=== PATIENT | male | born 1945 | race Caucasian/White ===

== ENCOUNTER 2022-09-19 09:53 | Emergency (ER) | payer OTHER, SELFPAY ==
[2022-09-19] VITALS (17 sets, daily range): BP systolic 126–145; BP diastolic 68–78; PULSE 54–104; RESP 9–25; TEMP 36.7; O2SAT 93–98
--- NOTE | 2022-09-19 09:30 | RT.EKG_ITS ---
APPROVED REPORT Exam: Resting ECG Reason for Exam: DIZZY, WEAK Patient Location: E HR:65 bpm ECG Measurements Heart Rate 65 AXIS MN 138 P 49 QRSd 107 QRS 23 QT 435 T 56 QTc 453 Conclusion Sinus rhythm...normal P axis, V-rate 60- 99 Normal sinus rhythm at a rate of 65 with interventricular conduction delay and a QRS of 107 ms. Norm al axis. QTc within normal limits. MN within normal limits. No ST segment abnormalities. No acute injury pattern. No prior for comparison.
--- NOTE | 2022-09-19 10:05 | ED.GENADUL_ITS ---
Discharge Plan Disposition Patient Disposition: Home Discharge Details Clinical Impression: Dizziness Primary Care Provider: None,None ED Provider: August Britton Discharge Instructions Additional Instructions: Please read all of the information that accompanies these instructions. You were seen in the emergency department for your dizziness. Please schedule an appointment with your primary care provider later this week. Please return to the emergency department if fall again develop nausea or vomiting or develop any chest pain. Please return to the emergency department if you take any falls at home. Medical Decision Making This is an overall well-appearing normothermic and not tachycardic 76-year-old male with dizziness concerning for intracranial hemorrhage given head strike yesterday and age. He has no acute neurological deficits and so my suspicion is low for CVA and I do not feel that he is a tPA candidate given his lack of neurological deficits. Furthermore given my low suspicion for CVA and specifically left suspicion for posterior circulation stroke so I do not feel that the patient requires an MRI. He is not altered to suggest encephalitis though he may have early dementia. No tonic-clonic activity so I do not feel that the patient requires an EEG. No fevers no nuchal rigidity so I do not feel that the patient requires a lumbar puncture. He has not been nauseous nor vomiting so my suspicion for acute electrolyte abnormalities is low. He cannot recall what medications he takes and he has no medications listed in our EMR. Chart review at [facility] [place] indicates the patient takes terazosin, simvastatin, omeprazole, magnesium, finasteride, and amlodipine.He has remote history of cataract surgery.No reported generator use to suggest carbon monoxide toxicity. No headache to suggest giant cell arteritis. ECG with no significant dysrhythmias. Will obtain a troponin to assess for myocardial injury. Given his intermittent sudden onset dizziness my suspicion is higher for a peripheral cause rather than a central cause. We will ensure that he is not anemic. He is not an alcohol drinker to suggest acute ethanol intoxication. We will assess a TSH. No pain out of proportion to suggest necrotizing soft tissue infection.We will ensure patient is able to ambulate if he is to be discharged. Per Nexus criteria, cervical CT not obtained. The patient had no c-spine midline tenderness, no evidence of intoxication, was AAOx3, had no focal neurological deficits, and no painful distracting injuries. 10:48 AM CBC with no anemia thrombocytopenia nor leukocytosis. Negative troponin. Magnesium within normal limits. Normal reassuring TSH. Comprehensive metabolic panel with normal creatinine. No acute LFT abnormalities. No acute electrolyte abnormalities. Mild hyperglycemia but no gap to suggest DKA. Normal bicarbonate. Mildly elevated BUN. No prior for comparison. 11:15 AM On my preliminary read there is no signs of any acute intercranial hemorrhage. Will attempt symptomatic treatment for peripheral vertigo with meclizine. Patient reports having outpatient follow-up with the [facility] in [place]. I will have health superintendent ammunition storage Ana Maria have patient seen later this week for follow- up. 11:[address] scan reassuring. Advised outpatient coordinator Ana Maria to see if we have case management available to meet with the patient given that he fell at home yesterday. Patient tolerated an ambulatory trial in the ED. He was also able to tolerate p.o. 12:10 PM I spoke with Damaris from case management who will come to evaluate the patient. Patient's sister is at bedside. 12:40 PM Directly from case management met with the patient. Patient reportedly has a supportive neighbor. Patient ambulates at baseline without assistance. Damaris will touch base with case management from the [facility] to help arrange for the patient to have a lifeline through the [facility]. She will also help to arrange home health pending [facility] approval. I will have physical therapy come to evaluate the patient in the ED. 1:56 PM Unfortunately physical therapy was not available today. Patient was able to ambulate in the ED. I advised ED return if he had recurrent dizziness or recu rrent falls. Otherwise we will proceed with empiric trial of expectant outpatient management. Chronic conditions affecting the care of the patient: N/A History obtained from an outside historian: Paramedics External record review: Chart review [facility] [place] Diagnostic interpretations performed by me: Per my independent interpretation EKG shows: Normal sinus rhythm at a rate of 65 with interventricular conduction delay and a QRS of 107 ms. Normal axis. QTc within normal limits. NH within normal limits. No ST segment abnormalities. No acute injury pattern. No prior for comparison. Medications: Meclizine Social determinants of health affecting disposition: Lives alone Management discussed with: Care management Treatment/interventions considered: Hospitalization but deferred Response to therapies provided: No recurrent dizziness in the ED HPI General Date/Time Provider Initiated Documentation: 09/19/22 10:05 . HPI Narrative: This is a 76-year-old male with history of hypertension arriving via EMS in the setting of dizziness and lightheadedness when standing. Patient reportedly fell yesterday when standing. He reportedly struck his head. He reports no blood thinners. He denies any pain. He says that his dizziness comes and goes. He feels as if his dizziness is causing him to have room spinning. He has never had any prior episodes of similar symptoms. He can control the spinning sensation by lying down. He denies routine tobacco, ethanol, and illicits. He has had no weakness nor any difficulty speaking. He denies fevers chills nausea vomiting chest pain shortness of breath dysuria frequency and abdominal pain. He lives alone. Related Data Allergies Allergy/AdvReac Type Severity Reaction Status Date / Time No Known Allergies Allergy Unverified 09/19/22 10:01 General Stated Complaint: Dizzy/Sync RUTH ANN: 3 PFSH All Active Problems (Updated 09/19/22 @ 11:00 by August Britton MD) Dizziness (Acute) Social History Smoking/Tobacco Use Status: Never Smoking risk assessment performed?: Yes Alcohol Intake: never Substance use type: does not use Housing: house Exam Narrative Exam Narrative: General: Well-appearing in no acute distress speaking in complete sentences. Head: Normocephalic, atraumatic. Eye: Pupils equal, round reactive to light. Extraocular eye movements intact. No conjunctival injection. No scleral icterus. Ear, nose, mouth, throat: Grossly normal inspection. Normal voice, handling secretions normally. No hemotympanum bilaterally. No septal hematoma. Neck: Trachea midline. No midline cervical spinal tenderness. Cardiovascular: Well-perfused distal extremities. Regular rate and rhythm. Respiratory: Nonlabored respiration. Clear lungs bilaterally. Gastrointestinal: Nondistended abdomen.Soft nontender abdomen. Musculoskeletal: No edema. Moving all 4 extremities spontaneously. Skin: Normal for age and race, grossly normal temperature and turgor. No acute rash. Neurologic: Alert and appropriate, no apparent acute deficits. GCS 15. Cranial nerves II through XII intact grossly. No dysmetria. No dysdiadochokinesia. 5 out of 5 bilateral upper and lower extremity strength. Psychiatric: Mood and manner are appropriate. Grooming and personal hygiene are appropriate. Course Vital Signs Vital signs: Vital Signs Temperature 36.7 C 07/22/23 09:52 Pulse 89 09/19/22 09:52 Respiratory Rate 20 09/19/22 09:52 Blood Pressure 142/73 H 09/19/22 09:52 Pulse Oximetry 98 09/19/22 09:52 Temperature 36.7 C 09/19/22 09:52 Temperature Source Tympanic 09/19/22 09:52 Pulse 89 09/19/22 09:52 Respiratory Rate 20 09/19/22 09:52 Respiratory Effort Normal, Non-Labored 09/19/22 09:59 Blood Pressure 142/73 H 09/19/22 09:52 Blood Pressure Position Supine 09/19/22 09:52 Pulse Oximetry 98 09/19/22 09:52 Oxygen Delivery Method Room Air 09/19/22 09:52 Oxygen Flow Rate 0 09/19/22 09:52 Pain Level 0 09/19/22 09:52
--- NOTE | 2022-09-19 10:15 | DI.CT_ITS ---
Exam(s) CT HEAD WO EXAM: CT HEAD WO CLINICAL HISTORY: History of fall. TECHNIQUE: Imaging Protocol: Axial computed tomography images with coronal and sagittal reformatted images were created and reviewed COMPARISON: No exams were available for comparison FINDINGS: Ventricles and Extra axial spaces: Normal in size and morphology for the patient's age. Hemorrhage: None. Cerebral parenchyma: There is no evidence of an acute territorial infarct. There are areas of decrea sed attenuation in the white matter consistent with small vessel ischemic disease. Midline shift: None. Brainstem/Cerebellum: Normal. Calvarium: Normal. Visualized Paranasal sinuses/Mastoids: There is complete opacification of the right maxillary sinus. The remaining visualized paranasal sinuses are clear. Soft Tissues: There is mild soft tissue swelling over the right parietal scalp. IMPRESSION: No acute intracranial process. RADIATION DOSE DELIVERED: 738.15mGy.cm Total DLP DATA REPOSITORY: All CT scans at this facility are submitted to the National Radiology Data Registry (NRDR) Dose Index Registry (DIR) with the [employer] (ACR). RADIATION OPTIMIZATION: All CT scans at this facility use at least one of these dose optimization te chniques: automated exposure control; mA and/or kV adjustment per patient size (includes targeted exa ms where dose is matched to clinical indication); or iterative reconstruction.
[2022-09-19 10:26] LABS: Abs Immature Grans 0.03 10^3/uL (0.0-0.06); Absolute Basophil Count 0.05 10^3/uL (0.0-0.2); Absolute Eosinophil Count 0.09 10^3/uL (0.0-0.7); Absolute Lymphocyte Count 0.82 10^3/uL (1.2-3.4); Absolute Monocyte Count 0.42 10^3/uL (0.1-0.8); Absolute Neutrophil Count 4.82 10^3/uL (1.2-6.7); Basophils % 0.8; Eosinophils % 1.4; HCT 41.2 % (40.0-50.0); Immature Grans % 0.5; Lymphocytes % 13.2; MCH 30.9 pg (27.0-33.0); MCV 91 fL (80-95); Monocytes % 6.7; Neutrophils % 77.4; Platelet Count 204 10^3/uL (130-400); RBC 4.53 10^6/uL (4.36-5.78); RDW 12.5 % (11.8-14.1); RDW-SD 41.5 fL; WBC 6.23 10^3/uL (4.4-10.8)
[2022-09-19 10:51] LABS: ALT 22 U/L (16-63); AST 15 U/L (15-37); Alkaline Phosphatase 94 U/L (46-116); Anion Gap 5.4 mmol/L (3-11); BUN 19 mg/dL (7-18); Bilirubin, Total 0.4 mg/dL (0.2-1.0); CO2 28.6 mmol/L (21.0-32.0); CREATININE 1.3 mg/dL (0.70-1.30); Calcium 9.2 mg/dL (8.5-10.1); Chloride 107 mmol/L (98-107); Estimated GFR 56.58 (mL/min/1.73m2); Glucose 107 mg/dL (74-106); Magnesium 1.9 mg/dL (1.8-2.4); Potassium 4.7 mmol/L (3.5-5.1); Sodium 141 mmol/L (136-145); TSH 1.58 uIU/mL (0.36-3.74); Total Protein 6.8 g/dL (6.4-8.2); Troponin I < 50 ng/L (<or=60)
--- NOTE | 2022-09-19 11:42 | DI.VRAD_ITS ---
PROCEDURE INFORMATION: Exam: CT Head Without Contrast Exam date and time: 09/19/2022 11:15 AM Age: 76 years old Clinical indication: Injury or trauma; Fall; Blunt trauma (contusions or hematomas); With loss of consciousness TECHNIQUE: Imaging protocol: Computed tomography of the head without contrast. COMPARISON: No relevant prior studies available. FINDINGS: Brain: There is no acute intracranial hemorrhage. No extra-axial fluid collection. No evidence of acute infarct. Caba white differentiation is intact. There is no evidence of mass. There is no mass effect or midline shift. Mild lucency in white matter compatible with microvascular change. There is diffuse cerebral atrophy present, consistent with this patient's age. Cerebral ventricles: No ventriculomegaly. Paranasal sinuses: Mucosal thickening right maxillary sinus. Small left maxillary and sphenoid sinus retention cysts or polyps. Mastoid air cells: No significant mastoid effusion. Orbital cavities: There have been bilateral intraocular lens replacements likely related to cataract surgery. Bones/joints: No acute fracture. Soft tissues: There is right lateral parietal scalp soft tissue swelling. IMPRESSION: No evidence of acute intracranial abnormality. No acute hemorrhage. No evidence of acute infarct or mass. Dictated and Authenticated by: Ana Maria Nugent MD. Ordering:WILMER Koch MD
== END 2022-09-19 13:20 | disposition home or self-care (01) ==
PROVIDERS: Emergency Provider Emergency Medicine
DX: R42 Dizziness and giddiness (principal); S06.9X9A Unspecified intracranial injury with loss of consciousness of unspecified duration, initial encounter; W19.XXXA Unspecified fall, initial encounter; R41.0 Disorientation, unspecified; R53.1 Weakness; I10 Essential (primary) hypertension; Z60.2 Problems related to living alone
CPT/HCPCS: 80053; 93005; 99285; 70450; 83735; 84443; 84484; 85025; 93010; 99284